=== PATIENT | female | born 1965 | race Caucasian/White ===

== ENCOUNTER 2019-05-29 23:22 | Emergency (ER) | payer OTHER ==
[2019-05-29 23:30] VITALS: BP 153/80; PULSE 84; TEMP 97.9; BMI 23.1
[2019-05-29] MEDS ORDERED: KETOROLAC TROMETHAMINE 30 MG/1 ML VIAL IVPUSH ONE (23:44)
[2019-05-29] MEDS ORDERED: SODIUM CHLORIDE 1,000 ML IV STA (23:44)
[2019-05-29] MEDS ORDERED: ONDANSETRON 4 MG/2 ML VIAL IVPUSH ONE (23:44)
--- NOTE | 2019-05-29 23:45 | PDOC ---
History of Present Illness - General Chief Complaint: Pain, Acute Stated Complaint: R FLANK PAIN Time Seen by Provider: 05/29/19 23:35 - History of Present Illness Initial Comments: This 53-year-old woman with no significant past medical history is referred here from urgent care with a history of right flank pain radiating to the right lower quadrant associated with nausea. Patient has had right-sided lower back pain for last few weeks. She was treated by her PMD for presumed low back pain with prednisone and MRI scheduled. Today, she had radiation of the pain to the right lower quadrant/right inguinal area with associated severe nausea. She was seen in urgent care where right lower quadrant tenderness without rebound or guarding was seen. Renal colic was presumed and she was sent here. Patient has no previous history of kidney stones but has a strong family history of renal colic. No fever/chills/dysuria/hematuria noted. She has had some urinary frequency and mild urgency in the last several days. Patient has had a history of lower tract UTI in the past; no history of pyelonephritis Non-smoker No daily alcohol or other recreational drug use No daily medications other than oral contraceptives Past History - Past Medical History Allergies/Adverse Reactions: Allergies Allergy/AdvReac Type Severity Reaction Status Date / Time No Known Allergies Allergy Unverified 05/29/19 23:32 Home Medications: Ambulatory Orders Norethindrone-E.estradiol-Iron [Lo Loestrin Fe 1-10 Tablet] 1 tab PO DAILY 05/29 Ondansetron [Zofran *Odt*] 4 mg SL BID PRN #10 od.tablet 05/30/19 COPD: No - Psycho Social/Smoking Cessation Hx Smoking History: Unknown if ever smoked Have you smoked in the past 12 months: No Number of Cigarettes Smoked Daily: 0 Information on smoking cessation initiated: No Review of Systems - Review of Systems Able to Perform ROS?: Yes Comments:: 12 point review of systems is negative except for what is noted in the history of present illness *Physical Exam - Vital Signs Last Vital Signs Temp Pulse Resp BP Pulse Ox 97.9 F 84 14 153/80 100 05/29/19 23:28 05/29/19 23:28 05/29/19 23:28 05/29/19 23:28 05/29/19 23:28 - Physical Exam GENERAL: Adult female, alert and oriented x3 moderate distress secondary to right lower abdominal pain and nausea EYES: PERRLA, EOMI, sclera anicteric, conjunctiva clear. ENT: Ears normal, nares patent, oropharynx clear without exudates. Dry mucous membranes. NECK: Normal range of motion, supple without lymphadenopathy, JVD, or masses. LUNGS: Breath sounds equal, clear to auscultation bilaterally. No wheezes, and no crackles. HEART:Regular rate and rhythm, normal S1 and S2 without murmur, rub or gallop. ABDOMEN:.normal bowel sounds; mild tenderness of mid right inguinal area without masses/hernia; no guarding or rebound; no distention. EXTREMITIES: Normal range of motion, no edema. No clubbing or cyanosis. No erythema, or tenderness. NEUROLOGICAL: Cranial nerves II through XII grossly intact. Normal speech. No focal neurological deficits. MUSCULOSKELETAL: Back non-tender to palpation, no CVA tenderness SKIN: Warm, Dry, normal turgor, no rashes or lesions noted. ED Treatment Course - LABORATORY CBC & Chemistry Diagram: 05/30/19 00:05 05/30/19 00:05 ED Progress Note - Progress Note Progress Note: This otherwise healthy 53-year-old woman presents as referral from urgent care center to rule out renal colic. Patient has been treated for the last few weeks for lower back pain and has MRI scheduled in 48 hours to investigate this diagnosis. Over the last 24 hours, she is developed nausea with some mild vomiting along with radiation of pain into the right lower quadrant/right groin. Although the patient had no microscopic hematuria on urinalysis in urgent care center, she is referred here because of change in her pain, the nausea and family history of renal colic. Exam as noted above with tenderness in the right inguinal/femoral area without palpable masses or hernia. 1 L normal saline IV hydration given along with 4 mg of Zofran IV and Toradol 30 mg IV. Patient feels significantly better after above medications and IV hydration Laboratory evaluation notable for white blood cell count of 11,600 with 87% neutrophils. BUN is 18 with a creatinine of 0.8. Urinalysis shows trace blood and trace LE on dip and 16 WBC/0 RBCs/285 bacteria Renal stone protocol CT performed and interpretation by Imaging clinical applications manager: No evidence of ureteral or nephrolithiasis. No hydronephrosis or hydroureter. No evidence of other renal abnormality. Appendix is of normal size and there is no periappendiceal inflammation or fluid. No bowel obstruction or other acute abnormality seen. Results discussed with the patient. Etiology of patient's groin discomfort unclear at this point. No evidence of inguinal or femoral hernia on clinical exam or CT. Pain and tenderness may be related to lumbar radiculopathy. Although she has improvement in both nausea and discomfort, she noted mild recurrence of her nausea at this time. Zofran ODT 4 mg given by mouth. It is possible that the patient's nausea is not directly related to her pain ( for example, gastroenteritis). She should maintain a light diet and prescription for Zofran ODT will be sent to her pharmacy. Meanwhile, she should return to ER if she has worsening of her pain, persistent vomiting or fever. She should plan on having her MRI on Monday, June 01 as scheduled. She should contact her physician to make sure that the area of the right inguinal/ femoral canal is imaged in the MRI Discharge - Discharge Information Problems reviewed: Yes Clinical Impression/Diagnosis: Right groin pain Condition: Stable Disposition: HOME - Additional Discharge Information Prescriptions: Ondansetron [Zofran *Odt*] 4 mg SL BID PRN #10 od.tablet PRN Reason: Nausea - Follow up/Referral - Patient Discharge Instructions Patient Printed Discharge Instructions: DI for Pelvic Pain Additional Instructions: Light diet Zofran ODT 4 mg up to twice a day as needed for nausea Have MRI in 48 hours as scheduled Return to ER if you have more severe pain, persistent vomiting or fever - Post Discharge Activity
[2019-05-29] MEDS ORDERED: ONDANSETRON 4 MG/2 ML VIAL ONE (23:50)
[2019-05-29] MEDS ORDERED: KETOROLAC TROMETHAMINE 30 MG/1 ML VIAL ONE (23:50)
[2019-05-30 01:27] LABS: BASO % 0.2 % (0-2.0); EOS % 0.1 % (0-4.5); HEMATOCRIT 40.7 % (32.4-45.2); HEMOGLOBIN 13.4 GM/dL (10.7-15.3); LYMPH % 7.9 % (8-40); MCH 30.8 pg (25.7-33.7); MEAN CELL VOLUME 93.5 fl (80-96); MEAN PLT VOLUME 9.9 fl (7.5-11.1); MONO % 5.1 % (3.8-10.2); NEUT % 86.7 % (42.8-82.8); PLATELET COUNT 204 K/MM3 (134-434); RBC 4.35 M/mm3 (3.60-5.2); RDW 13.6 % (11.6-15.6); WHITE BLOOD COUNT 11.6 K/mm3 (4.0-10.0)
[2019-05-30 01:30] LABS: EPI CELLS 7.9 /HPF (0-5/HPF); HYALINE CASTS 13 /lpf (0-8); URINE APPEARANCE CLOUDY; URINE BACTERIA 285.8 /hpf (NEGATIVE); URINE BILIRUBIN NEGATIVE (NEGATIVE); URINE COLOR DK YELLOW; URINE GLUCOSE (UA) NEGATIVE (NEGATIVE); URINE KETONE TRACE (NEGATIVE); URINE LEUK ESTERASE TRACE (NEGATIVE); URINE NITRITE NEGATIVE (NEGATIVE); URINE PROTEIN NEGATIVE (NEGATIVE); URINE WBC 16 /hpf (0-5)
[2019-05-30] MEDS ORDERED: ONDANSETRON *ODT* 4 MG TABLET SL ONE (02:53)
[2019-05-30] MEDS ORDERED: ONDANSETRON *ODT* 4 MG TABLET ONE (02:55)
[2019-05-30 03:13] LABS: ALBUMIN 3.8 g/dl (3.4-5.0); BILIRUBIN,TOTAL 0.5 mg/dL (0.2-1); BLOOD UREA NITROGEN 18.1 mg/dL (7-18); CALCIUM 8.5 mg/dL (8.5-10.1); CREATININE 0.8 mg/dL (0.55-1.3); POTASSIUM 3.8 mmol/L (3.5-5.1)
[2019-05-30 04:09] LABS: URINE CRYSTALS SEEN /hpf
[2019-05-30 04:10] LABS: URINE RBC NONE SEEN /hpf (0-4)
== END 2019-05-30 03:02 | disposition home or self-care (01) ==
LOC: FER 23:22
PROC: 3E0333Z Introduction of Anti-inflammatory into Peripheral Vein, Percutaneous Approach (ICD-10-PCS; principal; 2019-05-29)
PROC: 3E033GC Introduction of Other Therapeutic Substance into Peripheral Vein, Percutaneous Approach (ICD-10-PCS; 2019-05-29)
DX: R10.31 Right lower quadrant pain (principal)
CPT/HCPCS: 36415; 74176-TC; 80053; 81003; 85025; 87086; 99284-25; J7030; Q0162